=== PATIENT | male | born 1965 ===

== ENCOUNTER 2022-02-01 05:51 | Day surgery (SDC) | payer OTHER ==
[~2022-02-01] VITALS: Ht 167.6 cm; Wt 63.5 kg
== END 2022-02-01 16:30 | disposition home or self-care (01) ==
LOC: CIR.AMB 05:51
PROVIDERS: ATTEND Surgery
DX: K40.30 Unilateral inguinal hernia, with obstruction, without gangrene, not specified as recurrent (principal); Z20.822 Contact with and (suspected) exposure to COVID-19; Z71.6 Tobacco abuse counseling; F17.210 Nicotine dependence, cigarettes, uncomplicated; G43.909 Migraine, unspecified, not intractable, without status migrainosus; F12.90 Cannabis use, unspecified, uncomplicated